=== PATIENT | male | born 1965 | race Hispanic/Latino ===

== ENCOUNTER 2016-08-03 08:22 | Inpatient (IN) | payer OTHER ==
[~2016-08-03] VITALS: Ht 162.6 cm; Wt 70.4 kg
[~2016-08-03 08:22] MED LIST: NO MEDICATION
[2016-08-03 09:54] LABS: HEMATOCRIT 44.2 % (39.0-50.0); HEMOGLOBIN 15.2 g/dl (14.0-18.0); IMMATURE GRANULOCYTES 0.5 % (0.0-1.0); MEAN CELL VOLUME 90.2 fL CALC (80.0-100.0); MEAN CORPUSCULAR HGB CONC 34.4 g/L CALC (32.0-36.0); NEUT# 9.69 thou/uL (1.82-7.42); RED BLOOD COUNT 4.9 mill/uL (4.70-6.10); RED CELL DISTRI WIDTH 12.8 % (11.5-15.5)
[2016-08-03 10:00] LABS: ALBUMIN 4.5 g/dL (3.2-5.0); ALKALINE PHOSPHATASE 105 u/l (38-126); ANION GAP 17 (6-22 (CALC)); BILIRUBIN, TOTAL 0.6 mg/dL (0.0-1.4); BUN 10 mg/dL (9-20); BUN/CREATININE RATIO 11 (12-20 (CALC)); CALCIUM 8.8 mg/dL (8.4-10.2); CARBON DIOXIDE 26 mmol/l (22-30); CHLORIDE 102 mmol/l (95-108); CREATININE 0.9 mg/dL (0.7-1.3); GFR > 60 ML/MIN (>=60 (CALC)); GFR FOR AFR.AMER. > 60 ML/MIN (>=60 (CALC)); GLUCOSE 123 mg/dL (75-110); POTASSIUM 3.7 mmol/l (3.5-5.1); SGOT/AST 38 u/l (17-59); SGPT/ALT 42 u/l (21-72); SODIUM 141 mmol/l (137-146); TOTAL PROTEIN 8.7 g/dL (6.3-8.2)
[2016-08-03 10:11] LABS: MYOGLOBIN 31 ng/mL (0 - 121)
[2016-08-03 10:21] LABS: INFLUENZA A NONE DETECTED (NONE DETECT); INFLUENZA B NONE DETECTED (NONE DETECT)
[2016-08-03 11:27] LABS: URINE BILIRUBIN - DIPSTICK NEGATIVE (NEGATIVE); URINE BLOOD DIPSTICK SMALL (NEGATIVE); URINE CLARITY CLEAR; URINE COLOR YELLOW; URINE GLUCOSE - DIPSTICK NEGATIVE (NEGATIVE); URINE KETONE NEGATIVE (NEGATIVE); URINE LEUK ESTERASE NEGATIVE (NEGATIVE); URINE NITRITE - DIPSTICK NEGATIVE (Negative); URINE PH 6.5 (4.5-8.0); URINE PROTEIN - DIPSTICK NEGATIVE (NEG-TRACE); URINE UROBILINOGEN - DIPSTICK 0.2 E.U./dL (0.2)
[2016-08-03 11:36] LABS: URINE RBC 0-2 RBC/hpf (0-5)
[2016-08-03 13:15] VITALS: BP 119/69
[2016-08-04 00:15] VITALS: BP 118/59
[2016-08-04 04:15] VITALS: BP 144/79
[2016-08-04 06:48] LABS: ANION GAP 19 (6-22 (CALC)); BUN 8 mg/dL (9-20); BUN/CREATININE RATIO 9 (12-20 (CALC)); CALCIUM 7.7 mg/dL (8.4-10.2); CALCULATED LDLCHOLESTEROL 43 mg/dL (62-129 (CALC)); CARBON DIOXIDE 20 mmol/l (22-30); CHLORIDE 105 mmol/l (95-108); CREATININE 0.9 mg/dL (0.7-1.3); GFR > 60 ML/MIN (>=60 (CALC)); GFR FOR AFR.AMER. > 60 ML/MIN (>=60 (CALC)); GLUCOSE 85 mg/dL (75-110); HDL CHOLESTEROL 21 mg/dL (>=40); POTASSIUM 3.7 mmol/l (3.5-5.1); SODIUM 140 mmol/l (137-146); TOTAL CHOLESTEROL 89 mg/dl (0-199); TOTAL TRIGLYCERIDES 120 mg/dl (30-149); VLDL CHOLESTROL 24 mg/dl (8-62 (CALC))
[2016-08-04 06:55] LABS: HEMATOCRIT 39.7 % (39.0-50.0); HEMOGLOBIN 13.4 g/dl (14.0-18.0); IMMATURE GRANULOCYTES 0.8 % (0.0-1.0); MEAN CELL VOLUME 92.3 fL CALC (80.0-100.0); MEAN CORPUSCULAR HGB 31.2 pG CALC (26.0-32.0); MEAN CORPUSCULAR HGB CONC 33.8 g/L CALC (32.0-36.0); NEUT# 10.94 thou/uL (1.82-7.42); RED BLOOD COUNT 4.3 mill/uL (4.70-6.10); RED CELL DISTRI WIDTH 13.1 % (11.5-15.5)
[2016-08-04 09:00] VITALS: BP 130/67
[2016-08-04 16:00] VITALS: BP 131/66
[2016-08-04 19:15] VITALS: BP 139/65
[2016-08-05] VITALS (7 sets, daily range): BP systolic 123–153; BP diastolic 70–81
[2016-08-05 06:39] LABS: HEMATOCRIT 34.9 % (39.0-50.0); HEMOGLOBIN 11.9 g/dl (14.0-18.0); IMMATURE GRANULOCYTES 1.5 % (0.0-1.0); MEAN CELL VOLUME 91.6 fL CALC (80.0-100.0); MEAN CORPUSCULAR HGB 31.2 pG CALC (26.0-32.0); MEAN CORPUSCULAR HGB CONC 34.1 g/L CALC (32.0-36.0); NEUT# 8.27 thou/uL (1.82-7.42); RED BLOOD COUNT 3.81 mill/uL (4.70-6.10)
[2016-08-05 06:46] LABS: ANION GAP 13 (6-22 (CALC)); BUN 9 mg/dL (9-20); BUN/CREATININE RATIO 10 (12-20 (CALC)); CALCIUM 7.9 mg/dL (8.4-10.2); CARBON DIOXIDE 24 mmol/l (22-30); CHLORIDE 107 mmol/l (95-108); CREATININE 0.9 mg/dL (0.7-1.3); GFR > 60 ML/MIN (>=60 (CALC)); GFR FOR AFR.AMER. > 60 ML/MIN (>=60 (CALC)); GLUCOSE 100 mg/dL (75-110); POTASSIUM 3.7 mmol/l (3.5-5.1); SODIUM 140 mmol/l (137-146)
[2016-08-06 04:00] VITALS: BP 127/75
[2016-08-06 05:16] LABS: ANION GAP 12 (6-22 (CALC)); BUN 8 mg/dL (9-20); BUN/CREATININE RATIO 9 (12-20 (CALC)); CALCIUM 7.8 mg/dL (8.4-10.2); CARBON DIOXIDE 25 mmol/l (22-30); CHLORIDE 107 mmol/l (95-108); CREATININE 0.9 mg/dL (0.7-1.3); GFR > 60 ML/MIN (>=60 (CALC)); GFR FOR AFR.AMER. > 60 ML/MIN (>=60 (CALC)); GLUCOSE 96 mg/dL (75-110); SODIUM 141 mmol/l (137-146)
[2016-08-06 05:32] LABS: HEMATOCRIT 34.5 % (39.0-50.0); HEMOGLOBIN 11.7 g/dl (14.0-18.0); IMMATURE GRANULOCYTES 2.9 % (0.0-1.0); MEAN CELL VOLUME 90.3 fL CALC (80.0-100.0); MEAN CORPUSCULAR HGB 30.6 pG CALC (26.0-32.0); MEAN CORPUSCULAR HGB CONC 33.9 g/L CALC (32.0-36.0); NEUT# 4.75 thou/uL (1.82-7.42); RED BLOOD COUNT 3.82 mill/uL (4.70-6.10); RED CELL DISTRI WIDTH 12.7 % (11.5-15.5)
[2016-08-06 07:38] VITALS: BP 151/84
[2016-08-06 12:15] VITALS: BP 140/86
[2016-08-06 15:51] VITALS: BP 146/87
[2016-08-06 19:39] VITALS: BP 153/86
[2016-08-07] VITALS: BP 149/88
[2016-08-07 05:20] VITALS: BP 129/82
[2016-08-07 05:53] LABS: HEMATOCRIT 42.2 % (39.0-50.0); HEMOGLOBIN 14.4 g/dl (14.0-18.0); IMMATURE GRANULOCYTES 4.8 % (0.0-1.0); MEAN CELL VOLUME 88.3 fL CALC (80.0-100.0); MEAN CORPUSCULAR HGB 30.1 pG CALC (26.0-32.0); MEAN CORPUSCULAR HGB CONC 34.1 g/L CALC (32.0-36.0); NEUT# 7.6 thou/uL (1.82-7.42); RED BLOOD COUNT 4.78 mill/uL (4.70-6.10); RED CELL DISTRI WIDTH 12.4 % (11.5-15.5)
[2016-08-07 06:17] LABS: ANION GAP 19 (6-22 (CALC)); BUN 12 mg/dL (9-20); BUN/CREATININE RATIO 15 (12-20 (CALC)); CALCIUM 8.8 mg/dL (8.4-10.2); CARBON DIOXIDE 20 mmol/l (22-30); CHLORIDE 107 mmol/l (95-108); CREATININE 0.8 mg/dL (0.7-1.3); GFR > 60 ML/MIN (>=60 (CALC)); GFR FOR AFR.AMER. > 60 ML/MIN (>=60 (CALC)); GLUCOSE 141 mg/dL (75-110); POTASSIUM 4.6 mmol/l (3.5-5.1); SODIUM 141 mmol/l (137-146)
[2016-08-07 07:55] VITALS: BP 156/70
[2016-08-07] MEDS ORDERED: AUGMENTIN875TAB PO (10:29)
[2016-08-07] MEDS ORDERED: ROBITUSSIN AC10 ML PO (10:30)
[2016-08-07] MEDS ORDERED: MEDDOSEPAK PO (10:30)
== END 2016-08-07 14:46 | disposition home or self-care (01) | DRG 871 ==
LOC: ENPENDDIS → ED 08:22 → ED-I 10:18 → ED 10:40 → MS2 10:41
PROVIDERS: Emergency Medicine; ADMIT Internal Medicine; ATTEND Internal Medicine
DX: A41.9 Sepsis, unspecified organism (principal); J18.9 Pneumonia, unspecified organism; Z93.3 Colostomy status; Z85.038 Personal history of other malignant neoplasm of large intestine; Z90.49 Acquired absence of other specified parts of digestive tract
CPT/HCPCS: J1650; J3370

== ENCOUNTER 2017-12-30 21:05 | Emergency (ER) | payer OTHER ==
[~2017-12-30] VITALS: Ht 162.6 cm; Wt 90.0 kg
[~2017-12-30 21:05] MED LIST changes: +AUGMENTIN875TAB PO; +MEDDOSEPAK PO; +ROBITUSSIN AC10 ML PO
[2017-12-30] MEDS ORDERED: CIPROFLOXACN500 MG PO (21:50)
[2017-12-30 22:40] VITALS: BP 146/60
== END 2017-12-30 22:40 | disposition home or self-care (01) ==
LOC: ED 21:05
DX: T83.84XA Pain due to genitourinary prosthetic devices, implants and grafts, initial encounter (principal); C18.9 Malignant neoplasm of colon, unspecified; Y84.6 Urinary catheterization as the cause of abnormal reaction of the patient, or of later complication, without mention of misadventure at the time of the procedure

== ENCOUNTER 2018-06-26 11:28 | Inpatient (IN) | payer OTHER ==
[2018-06-26] VITALS (9 sets, daily range): BP systolic 93–169; BP diastolic 47–78
[~2018-06-26] VITALS: Ht 162.6 cm; Wt 68.0 kg
[~2018-06-26 11:28] MED LIST changes: +CIPROFLOXACN500 MG PO; +DILAUDID2 MG PO; +KEFLEX500 MG PO; +ZOFRAN8 MG PO
--- NOTE | 2018-06-26 11:40 | NUR ---
TO [place] ROOM
--- NOTE | 2018-06-26 12:30 | NUR ---
UROJET APPLIED TO PENIS MEATUS ORDERED TO FACILTATE DURAN PLACEMENT.
--- NOTE | 2018-06-26 13:00 | NUR ---
MULTIPLE ATTEMPTS TO CATH PT WITHOUT SUCCESS. PT ATTEMPTED TO CATH HIMSELF WELL HE DOES AT HOME S/P UROJET WITHOUT SUCCESS.
[2018-06-26 13:29] LABS: HEMATOCRIT 35.4 % (39.0-50.0); HEMOGLOBIN 11.9 g/dl (14.0-18.0); IMMATURE GRANULOCYTES 0.4 % (0.0-5.0); MEAN CELL VOLUME 90.1 fL CALC (80.0-100.0); MEAN CORPUSCULAR HGB 30.3 pG CALC (26.0-32.0); MEAN CORPUSCULAR HGB CONC 33.6 g/L CALC (32.0-36.0); NEUT# 9.3 thou/uL (1.82-7.42); RED BLOOD COUNT 3.93 mill/uL (4.70-6.10); RED CELL DISTRI WIDTH 12.1 % (11.5-15.5)
[2018-06-26 13:41] LABS: ALBUMIN 3.9 g/dL (3.2-5.0); ALKALINE PHOSPHATASE 115 u/l (38-126); ANION GAP 18 (6-22 (CALC)); BILIRUBIN, TOTAL 0.8 mg/dL (0.0-1.4); BUN 18 mg/dL (9-20); BUN/CREATININE RATIO 14 (12-20 (CALC)); CARBON DIOXIDE 24 mmol/l (22-30); CHLORIDE 99 mmol/l (95-108); CREATININE 1.3 mg/dL (0.7-1.3); GFR 58 ML/MIN (>=60 (CALC)); GFR FOR AFR.AMER. > 60 ML/MIN (>=60 (CALC)); POTASSIUM 3.8 mmol/l (3.5-5.1); SGOT/AST 32 u/l (17-59); SODIUM 137 mmol/l (137-146); TOTAL PROTEIN 7.2 g/dL (6.3-8.2)
--- NOTE | 2018-06-26 14:14 | NUR ---
PT TO BR WITHOUT ASSIST.
--- NOTE | 2018-06-26 14:25 | NUR ---
SPOKE W/PAIGE IN OR. ADVISED OF PT TO OR PER DR MENDOZA AND NPO STATUS.
--- NOTE | 2018-06-26 14:28 | NUR ---
PER OR, DR MENDOZA WILL NOT BE IN OR UNTIL APPROX 1745 OR 1800. EDP ADVISED. PT TO CT AT THIS TIME. PER PT HE HAS BEEN NPO SINCE LAST NOC.
--- NOTE | 2018-06-26 15:45 | NUR ---
PT RESTING ON STRETCHER COMFORT MEASURES PROVIDED. ASSISTED W/REPOSITIONING. ADVISED OF CONTINUED WAIT TIME.
--- NOTE | 2018-06-26 16:40 | NUR ---
PT RESTING ON STRETCHER. DISCUSSED POC FOR OR. ADVISED OF POSSIBILITY OF SUPRAPUBIC PLACEMENT IF DRUAN CATH IS UNSUCCESSFUL. PT VOICED UNDERSTANDING AND WAS ABLE TO DISCUSS PURPOSE OF SUPRAPUBIC.
--- NOTE | 2018-06-26 17:15 | NUR ---
OR NURSE AT BEDSIDE TO TRANSPORT PT TO OR VIA STRETCHER. PT VOICES AT THIS TIME THAT HE IS IN PAIN. PRIOR TO THAT PT ONLY C/O FULLNESS.
--- NOTE | 2018-06-26 20:20 | NUR ---
PT TO ICU BED 1 VIA STRETCHER ACCOMPANIED BY OR STAFF. PT ABLE TO ASSIST IN TRANSFER TO BED FROM STRETCHER WITH MINIMAL ASSISTANCE. PT IS ALERT AND ORIENTED X3. ADMISSION ASSESSMENT COMPLETED AT THIS TIME. IV PATENT X1. PT ORIENTED TO ROOM AND UNIT. PT ORIENTED TO CALL LIGHT SYSTEM. PT VERBALIZED UNDERSTANDING. URINE OBTAINED VIA DURAN FOR CULTURE AND SENT TO LAB. CALL LIGHT IN REACH. WILL CONTINUE TO MONITOR
--- NOTE | 2018-06-26 20:41 | NUR ---
DR MERCEDES PHONED FOR ADDITIONAL ORDERS. AWAITING CALL BACK.
[2018-06-26 21:08] LABS: URINE BLOOD DIPSTICK LARGE (NEGATIVE); URINE COLOR RED; URINE GLUCOSE - DIPSTICK NEGATIVE (NEGATIVE); URINE KETONE 15 mg/dL (NEGATIVE); URINE PH 6.5 (4.5-8.0); URINE PROTEIN - DIPSTICK >=300 mg/dL (NEG-TRACE)
[2018-06-26 21:19] LABS: URINE BILIRUBIN - DIPSTICK NEGATIVE (NEGATIVE); URINE LEUK ESTERASE MODERATE (NEGATIVE); URINE NITRITE - DIPSTICK POSITIVE (Negative)
[2018-06-26 21:25] LABS: URINE BACTERIA FEW hpf; URINE RBC TNTC RBC/hpf (0-5); URINE WBC 50-100 WBC/hpf (0-5)
--- NOTE | 2018-06-26 21:45 | NUR ---
FAMILY BROUGHT IN PA'S FOR PT. PT TOLERATED WATER, JELLO, AND PUDDING AND 1/2 TURKEY SNADWICH. ENCOURAGED PT TO EAT SLOW TO AVOID NAUSEA/VOMITTING. MULTIPLE VISITORS AT BEDSIDE. WILL CONTINUE TO MONITOR.
--- NOTE | 2018-06-26 21:58 | NUR ---
temp recheck 102.2. called cardinal to place in med orders stat
--- NOTE | 2018-06-26 22:06 | NUR ---
OVERRODE TYLENOL IN PYXIS AND GAVE TYLENOL PO TO PATIENT FOR TEMP OF 102.2 WITH CHILLS.
--- NOTE | 2018-06-26 22:10 | NUR ---
ICE PACKS APPLIED AND ALL BLANKETS REMOVED
--- NOTE | 2018-06-26 22:15 | NUR ---
NOTED THAT VITALS HAD NOT BEEN AUTO TAKEN PER PROTOCOL. RESET VITAL MACHINE TO OBTAIN POST OP VITALS PER PROTOCOL.
--- NOTE | 2018-06-26 22:32 | NUR ---
TEMP RECHECK 103.3 CHILLS HAVE STOPPPED AT THIS TIME. WILL RECHECK TEMP IN 30 MINUTES
--- NOTE | 2018-06-26 23:10 | NUR ---
TEMP RECHECK 102.8. PT ST 120-130. BP 93/61. DR MERCEDES NOTIFIED. SEPSIS PROTOCOL INTITATED AT THIS TIME. NEW ORDERS RECEIVED.
--- NOTE | 2018-06-26 23:15 | NUR ---
CYLINDER MACHINE OPERATOR AT BEDSIDE TO DRAW LABS
--- NOTE | 2018-06-26 23:23 | NUR ---
RADIOLOGY AT BEDSIDE FOR PORTABLE CXR
--- NOTE | 2018-06-26 23:38 | NUR ---
IV DC'D TO LAC DUE TO INFILTRATE. #20 STARTED IN RAC X1 ATTEMPT. MORPHINE 2MG GIVEN A SECOND IV PUSH DUE TO IV INFILTRATE.
--- NOTE | 2018-06-26 23:40 | NUR ---
TEMP RECHECK 103.0 HR 110-120 BP 108/75. BOLUS INFUSING AT THIS TIME
--- NOTE | 2018-06-26 23:55 | NUR ---
LACITC 2.9. DR MERCEDES NOTIFIED.
[2018-06-27] VITALS (18 sets, daily range): BP systolic 114–177; BP diastolic 56–74
--- NOTE | 2018-06-27 00:06 | NUR ---
RECEIVED NEW ORDER FROM DR MERCEDES. WILL CONTINUE TO MONITOR
--- NOTE | 2018-06-27 00:20 | NUR ---
PORT ACCESSED X1 ATTEMPT. IMMEADIATE BLOOD RETURN NOTED AND FLUSHED WITHOUT DIFFICULTY. BP 177/61. HR IN 90S AT THIS TIME. PT PACKED IN ICE. TEMP NOW 99.7. PT COLOR IS IMPROVED.
--- NOTE | 2018-06-27 01:25 | NUR ---
PT SITTING UP IN BED ALEART AND ORIENTED. DURAN EMPTIED AT THIS TIME. TEMP RECHECK 98.5. DURAN EMPTIED AT THIS TIME. PT REMAINS SR TO ST 90S-110. CALL LIGHT IN REACH. WILL CONTINUE TO MONITOR
--- NOTE | 2018-06-27 01:46 | NUR ---
ATTMPETED TO DRAW SECOND LACTIC FROM CHEST PORT. BLOOD RETURN IMMEADIATE THEN BECAME SLUGGISH. UNABLE TO OBTAIN ENOUGH OF A WASTE FOR BLOOD DRAW. PORT FLUSHES WITH EASE FOR SALINE FREE OF SWELLING OR REDNESS. TAR KETTLE RUNNER AT BEDSIDE TO DRAW LACTIC. CALL LIGHT IN REACH. WILL CONTINUE TO MONITOR.
--- NOTE | 2018-06-27 03:46 | NUR ---
LAB DRAWN AND SENT TO LAB BY Carol METZ RN
[2018-06-27 03:55] LABS: HEMATOCRIT 32.5 % (39.0-50.0); HEMOGLOBIN 10.9 g/dl (14.0-18.0); IMMATURE GRANULOCYTES 0.4 % (0.0-5.0); MEAN CELL VOLUME 90.3 fL CALC (80.0-100.0); MEAN CORPUSCULAR HGB 30.3 pG CALC (26.0-32.0); MEAN CORPUSCULAR HGB CONC 33.5 g/L CALC (32.0-36.0); NEUT# 12.64 thou/uL (1.82-7.42); RED BLOOD COUNT 3.6 mill/uL (4.70-6.10); RED CELL DISTRI WIDTH 12.2 % (11.5-15.5)
[2018-06-27 04:12] LABS: BILIRUBIN, TOTAL 0.8 mg/dL (0.0-1.4); CREATININE 1.6 mg/dL (0.7-1.3); MAGNESIUM 1.9 mg/dL (1.6-2.3); POTASSIUM 3.5 mmol/l (3.5-5.1); TOTAL PROTEIN 6.1 g/dL (6.3-8.2)
[2018-06-27 04:15] LABS: ALBUMIN 3.1 g/dL (3.2-5.0)
--- NOTE | 2018-06-27 04:15 | NUR ---
VIC FROM LAB CALLED WITH LACTIC OF 2.0. TREATMENT ALREADY IN PROGEESS. WILL CONTINUE TO MONITOR.
--- NOTE | 2018-06-27 05:39 | NUR ---
TEMP RECHECK 102.4. NO CHILLS NOTED AT THIS TIME. PT RESTING IN BED WITH EYES CLOSED. PT AROUSES TO VERBAL STIMULI. TYLENOL PO PROVIDED PER JUL. WILL RECHECK.CALL LIGHT IN REACH. WILL CONITNUE TO MONITOR
--- NOTE | 2018-06-27 06:15 | NUR ---
PT PACKED IN ICE.
--- NOTE | 2018-06-27 06:15 | NUR ---
TEMP RECHECK 102.8. DR MERCEDES NOTIFIED. WILL CONTINUE TO [facility].
--- NOTE | 2018-06-27 06:45 | NUR ---
REPORT RECVD FROM ZAID MACE AT START OF SHIFT.
--- NOTE | 2018-06-27 07:30 | NUR ---
PT SITTING UP IN BED, EATING BREAKFAST. ATE 100% OF MEAL.
--- NOTE | 2018-06-27 07:41 | NUR ---
PT MEDICATED FOR LOWER ABD PAIN. PT STATES 9/10 PAIN. PT ASKED FOR ANOTHER ICE PACK TO HELP REDUCE FEVER. ABD SOFT/DISTENDED, COLOSTOMY BAG. CATH DURAN DRAINGING SEDIMENT/BLOODY URINE. PT STATES HE USUALLY SELF CATHS AFTER COLON CANCER BUT WAS UNABLE TO YESTERDAY. PT GAURDING ABD. SKIN HOT/DRY. PULSES STRONG. SPEECH CLEAR. LUNG SOUNDS CLEAR. BREATHING EVEN/UNLABORED.
--- NOTE | 2018-06-27 08:27 | NUR ---
PT SLEEPING IN BED, SNORING, EASILY AROUSED. NO S/S OF DISTRESS.
--- NOTE | 2018-06-27 08:53 | NUR ---
PT SLEEPING IN BED, EYES CLOSED. RESPIRATIONS EVEN/UNLABORED. NO S/S OF DISTRESS. WILL CONTINUE TO MONITOR.
--- NOTE | 2018-06-27 09:26 | NUR ---
RED/WET AREA NOTICED ON BLANKET. UPON FURTHER INSPECTION, DRAIN AREA WAS LEAKING. DRAIN GAUZE x2 & ABD PAIN PLACED ON AREA AFTER REMOVAL FROM OLD DRESSING. PT GIVEN MORE PAIN MEDICATIONS FOR LOWER ABD PAIN. PT BARELY ABLE TO KEEP HIS EYES OPEN. WILL LET VISITORS BACK NOW.
--- NOTE | 2018-06-27 09:43 | NUR ---
2 FEMALE VISITORS @BEDSIDE.
--- NOTE | 2018-06-27 10:06 | NUR ---
PT REQUESTED HIS BK BURGER BE WARMED UP. DR MERCEDES @BEDSIDE W/PT & FAMILY/
--- NOTE | 2018-06-27 10:13 | NUR ---
DR MERCEDES REQUEST [facility] TO WORK ON TRANSFER TO [facility]. KEDAR ACKNOWLEDGES.
--- NOTE | 2018-06-27 10:37 | NUR ---
CASE MANAGEMENT WAITING FOR ACCEPTING DR FOR TRANSFER. DR MERCEDES CONTACTING DR STARR.
--- NOTE | 2018-06-27 10:47 | NUR ---
DR STARR ACCEPTED FOR UROLOGY TRANSFER TO [facility].
--- NOTE | 2018-06-27 11:58 | NUR ---
FAMILY/VISITORS IN & OUT ALL MORNING. 3 WOMEN AT BEDSIDE NOW. PT AWARE HE HAS BEEN ACCEPTED TO [facility]; WE ARE WAITING FOR A ROOM ASSIGNEMENT.
--- NOTE | 2018-06-27 12:21 | NUR ---
ABX STARTED. PT SLEEPING. MOM @BEDSIDE. MOM DENIES NEEDS AT THIS TIME. WILL CONTINUE TO MONITOR UNTIL TRANSFER COMPLETED.
--- NOTE | 2018-06-27 13:14 | NUR ---
ROOM ASSIGNED. TRASPORTATION ETA 30 MINS.
--- NOTE | 2018-06-27 13:31 | NUR ---
MOM & STEPDAD LEFT WITH ALL OF PTS BELONGINGS EXPECT PTS PURSE/WALLET. PTS "OLD LADY"/GIRLFRIEND AT BEDSIDE. PT GIVEN 2 MORE BOTTLES OF WATER.
--- NOTE | 2018-06-27 13:43 | NUR ---
PT MEDICATED FOR PAIN & FEVER. [facility] ON UNIT.
--- NOTE | 2018-06-27 14:00 | NUR ---
PT OUT THE DOOR WITH [facility] IN STABLE CONDITION. REPORT GIVEN TO RIGOBERTO AT [phone] IN [facility].
== END 2018-06-27 14:00 | DRG 375 ==
LOC: ED 11:28 → ED-I 14:10 → ED 14:24 → ORM 14:25 → ICU 19:30
PROVIDERS: Emergency Medicine; Urology; ADMIT Internal Medicine Nephrology; ATTEND Internal Medicine Nephrology
PROC: 0T9B30Z Drainage of Bladder with Drainage Device, Percutaneous Approach (ICD-10-PCS; principal; 2018-06-26)
PROC: 0WJR8ZZ Inspection of Genitourinary Tract, Via Natural or Artificial Opening Endoscopic Approach (ICD-10-PCS; 2018-06-26)
DX: C18.9 Malignant neoplasm of colon, unspecified (principal); N13.30 Unspecified hydronephrosis; C79.19 Secondary malignant neoplasm of other urinary organs; R33.8 Other retention of urine; N32.0 Bladder-neck obstruction; N28.9 Disorder of kidney and ureter, unspecified; N31.9 Neuromuscular dysfunction of bladder, unspecified; Z93.3 Colostomy status; Z90.49 Acquired absence of other specified parts of digestive tract
CPT/HCPCS: C1769; J1650

== ENCOUNTER 2018-08-20 17:05 | Emergency (ER) | payer OTHER ==
[~2018-08-20] VITALS: Ht 162.6 cm; Wt 60.0 kg
[2018-08-20 18:34] VITALS: BP 151/86
== END 2018-08-20 18:24 | disposition short-term general hospital (02) ==
LOC: ED 17:05
DX: T83.010A Breakdown (mechanical) of cystostomy catheter, initial encounter (principal); C18.9 Malignant neoplasm of colon, unspecified; Y83.3 Surgical operation with formation of external stoma as the cause of abnormal reaction of the patient, or of later complication, without mention of misadventure at the time of the procedure

== ENCOUNTER 2018-10-26 07:14 | Emergency (ER) | payer OTHER ==
[~2018-10-26] VITALS: Ht 162.6 cm; Wt 70.0 kg
[2018-10-26 08:09] VITALS: BP 155/60
== END 2018-10-26 08:12 | disposition home or self-care (01) ==
LOC: ED 07:14
DX: T83.098A Other mechanical complication of other urinary catheter, initial encounter (principal); R10.30 Lower abdominal pain, unspecified; Z85.038 Personal history of other malignant neoplasm of large intestine